=== PATIENT | male | born 1965 | race American Indian/Alaskan Native ===

== ENCOUNTER 2017-10-01 13:32 | Outpatient (CLI) | payer OTHER ==
--- NOTE | 2017-10-02 13:40 | Magnetic Resonance Report ---
MRI scan right knee: History: DJD right knee. Technique: Multiplanar multisequence images were obtained without contrast injection. Findings: The quadriceps tendon appears unremarkable. Infrapatellar fat appears normal. There is marginal osteophyte in periphery of the articular surface of tibia femoral condyles and the posterior patella. Marked narrowing of medial lateral and patellofemoral compartment with severe degenerative changes. Moderate joint effusion with multiple loose bodies suggesting osteochondromatosis. Severe chondromalacia patella with thinning and incompletely visualized articular cartilage. The anterior cruciate ligament appears deformed and probably related to degenerative changes and or partial tear. The posterior cruciate ligament grossly appears unremarkable. There is flattening and complex of posterior horn and adjacent body of medial and lateral meniscus. Small Guzman's cyst the posterior medial knee joint. Soft tissue edema in the popliteal fossa. Grossly MCL and LCL appears unremarkable. Impression: Multiple changes detailed above are consequence of severe arthritic changes in the knee joint.
== END 2017-10-01 13:33 | disposition home or self-care (01) ==
LOC: MRI 13:32
PROVIDERS: ATTEND Internal Medicine
DX: M17.11 Unilateral primary osteoarthritis, right knee (principal); M71.21 Synovial cyst of popliteal space [Baker], right knee; I10 Essential (primary) hypertension; E78.5 Hyperlipidemia, unspecified; D64.9 Anemia, unspecified; M22.41 Chondromalacia patellae, right knee
CPT/HCPCS: 73721